=== PATIENT | female | born 1995 | race African-American/Black ===

== ENCOUNTER 2018-05-22 23:54 | Emergency (ER) | payer OTHER, SELFPAY ==
[2018-05-23] MEDS ORDERED: HYDROcodone/Acetaminophen 10/325 mg Tablet ONE (01:06)
== END 2018-05-23 01:15 | disposition home or self-care (01) ==
LOC: ERS 23:54
DX: K04.7 Periapical abscess without sinus (principal); F41.9 Anxiety disorder, unspecified
CPT/HCPCS: 99282

== ENCOUNTER 2018-05-24 00:01 | Emergency (ER) | payer SELFPAY ==
[2018-05-24 00:39] LABS: #Lymphocytes 1.2 thou/uL (1.20-3.40); #Neutrophils 7.7 thou/uL (1.40-6.50); %Basophils 0.1 % (0.0-1.0); %Eosinophils 0.1 % (0.0-10.0); %Lymphocytes 11.7 % (21.0-51.0); %Monocytes 10.4 % (0.0-10.0); %Neutrophils 77.7 % (42.0-75.0); Hemoglobin 13.4 g/dL (12.0-16.0); Mean Corpuscular HGB CONC 32.9 g/dL (32.0-36.0); Mean Corpuscular Hemoglobin 29.8 pg (27.0-31.0); Mean Corpuscular Volume 90.5 fL (78.0-98.0); Mean Platelet Volume 9.5 fL (7.4-10.4); Platelet Count 138 thou/uL (130-400); RBC Distribution Width 11.7 % (11.5-14.5); White Blood Cell (WBC) Count 9.9 thou/uL (4.8-10.8)
[2018-05-24] MEDS ORDERED: Ketorolac Tromethamine 30 MG/ML VIAL ONE (00:40)
[2018-05-24] MEDS ORDERED: Clindamycin/D5W 900 mg/50 ml Premix Bag ONE (00:40)
[2018-05-24 00:51] LABS: BHCG - Serum Negative (NEGATIVE); Pregs Control Background? CLEAR/WHITE (CLR/WHITE); Pregs Control Bar Appear? YES (CONTROL BAR)
[2018-05-24 01:01] LABS: ALT (SGPT) 12 U/L (8-55); AST (SGOT) 17 U/L (5-34); Albumin 4.2 g/dL (3.5-5.0); Alkaline Phosphatase 76 U/L (40-150); Anion Gap 14 mmol/L (10-20); BUN (Urea Nitrogen) 9 mg/dL (7.0-18.7); Bilirubin, Total 0.7 mg/dL (0.2-1.2); Calc. Creatinine Clearance 0 mL/min (70-130); Calcium 9.7 mg/dL (7.8-10.44); Carbon Dioxide 25 mmol/L (22-29); Chloride 100 mmol/L (98-107); Estimated GFR-MDRD Greater than 90; Globulin 4.1 g/dL (2.4-3.5); Glucose 86 mg/dL (70-105); Potassium 3.5 mmol/L (3.5-5.1); Protein, Total 8.3 g/dL (6.0-8.3); Sodium 135 mmol/L (136-145)
[2018-05-24] MEDS ORDERED: Dexamethasone 10 MG/ML VIAL ONE (02:10)
--- NOTE | 2018-05-24 08:05 | RAD ---
SINGLE VIEW OF THE CHEST: DATE: 07/12/16. HISTORY: Syncope and weakness for the past 2 days. FINDINGS: Single view of the chest shows a normal sized cardiomediastinal silhouette. There is no evidence of c onsolidation, mass, or pleural effusion. The bones are unremarkable. IMPRESSION: No evidence of acute cardiopulmonary disease. POS: [facility]
--- NOTE | 2018-05-24 09:16 | CT ---
PRELIMINARY REPORT/[facility]/EMERGENTY AFTER-HOURS PROCEDURE CT Maxillofacial With Intravenous Contrast CLINICAL HISTORY: 22 years old, female; Signs and symptoms; Mass, lump, or swelling; Maxilla; Patient HX: Additional hi story obtained from em[facility], f24 reports near syncope episode, and was caught by co-workers. Pt reports b eing very weak the past x2 days. Pt reports l. Sided tooth pain. Pt came up here last night and was given an RX for bactrim and tramadol, with little pain relief. Febrile at 102.7, 1000mg of ty lenol po was given via [facility]. Pt reports taking x2 total doses of bactrim. TECHNIQUE: Axial computed tomography images of the face with intravenous contrast. Coronal and sagittal reformatted images were created and reviewed. COMPARISON: No relevant prior studies available. FINDINGS: Bones/joints: No acute fracture. Soft tissues: Asymmetric enlargement and edema of the left masseter and pterygoid muscles with diffus e surrounding inflammatory changes and left facial soft tissue swelling. Inflammatory changes of the left parapharyngeal space, glossotonsillar sulcus and left lateral pharyngeal wall are also present. Lymph nodes: Left greater than right bilateral cervical adenopathy, likely reactive. Orbits: Unremarkable. Sinuses: Unremarkable. Dental: Multiple dental restorations and the resulting significant metallic streak and beam hardening artifacts limits evaluation of the adjacent soft tissues of the oral cavity, bmw service technician space and fa cial soft tissues. Oral cavity: Tongue piercing present. Other findings: Left facial piercing. IMPRESSION: Asymmetric enlargement and edema of the left masseter and pterygoid muscles with diffuse surrounding inflammatory changes and left facial soft tissue swelling favoring to represent infection. Etiology p robably odontogenic disease however evaluation of the surrounding dental structures are very limited due to significant metallic dental streak and beam hardening artifacts. Recommend Dental consult. Thank you for allowing us to participate in the care of your patient. Dictated and Authenticated by: Esequiel Pedersen MD 05/24/2018 2:54 AM Central Time ([place] & [place]) FINAL REPORT EMERGENT AFTER HOURS CT OF THE FACE WITH CONTRAST: FINDINGS/IMPRESSION: I agree with the findings and impression given in the preliminary report per [facility] physician. There is soft tissue swelling in the left face and abnormal enlargement of the left muscles of mastication compared to the right. No well-defined fluid collection is identified, but evaluation is limited sec ondary to significant streak artifact from the dental amalgam. POS: [facility]
[2018-05-24] MEDS ORDERED: ISOVUE-370 76%-LOCM 1 ML ONE (12:11)
== END 2018-05-24 03:20 | disposition home or self-care (01) ==
LOC: ERS 00:01
DX: R55 Syncope and collapse (principal); K04.7 Periapical abscess without sinus; F41.9 Anxiety disorder, unspecified
CPT/HCPCS: 36415; 70487; 71045; 80053; 84703; 85025; 87040; 96361; 96365; 96375; J1100; J1885; J2270; J3490

== ENCOUNTER 2018-05-26 15:16 | Inpatient (IN) | payer SELFPAY ==
[~2018-05-26 15:16] MED LIST: ISOVUE-370 76%-LOCM 1 ML ONE
[2018-05-26 15:53] LABS: #Lymphocytes 2.9 thou/uL (1.20-3.40); #Monocytes 1.5 thou/uL (0.11-0.59); #Neutrophils 7.4 thou/uL (1.40-6.50); %Eosinophils 0.2 % (0.0-10.0); %Lymphocytes 24.6 % (21.0-51.0); %Monocytes 12.8 % (0.0-10.0); %Neutrophils 62.4 % (42.0-75.0); Hemoglobin 13.1 g/dL (12.0-16.0); Mean Corpuscular HGB CONC 33.6 g/dL (32.0-36.0); Mean Corpuscular Volume 89.3 fL (78.0-98.0); Mean Platelet Volume 8.9 fL (7.4-10.4); Platelet Count 157 thou/uL (130-400); RBC Distribution Width 11.5 % (11.5-14.5); Red Blood Cell (RBC) Count 4.36 mill/uL (4.20-5.40); White Blood Cell (WBC) Count 11.8 thou/uL (4.8-10.8)
[2018-05-26 16:11] LABS: BHCG - Serum Negative (NEGATIVE); Pregs Control Background? CLEAR/WHITE (CLR/WHITE); Pregs Control Bar Appear? YES (CONTROL BAR)
[2018-05-26] MEDS ORDERED: Clindamycin/D5W 900 mg/50 ml Premix Bag ONE (17:00)
--- NOTE | 2018-05-26 17:55 | CT ---
CT NECK SOFT TISSUES WITH CONTRAST: 05/26/2018 5:06 p.m. HISTORY: A 22-year-old female with left facial soft tissue swelling, here for preoperative evaluation. COMPARISON: Maxillofacial CT with contrast from 05/24/2018. FINDINGS: The previously described soft tissue edema and swelling of the superficial and deep spaces of the lef t face are no better than on 05/24/2018 and are probably slightly worse. This involves the left mast icator, parapharyngeal, submandibular, and buccal spaces. There is extensive reactive infectious lym phadenopathy in levels 1A, especially 1B, 2, 3, 4, and 5, bilaterally, left greater than right. Ther e is involvement of the larynx and hypopharynx, including complete effacement of the left piriform si nus and infiltration of the left paraglottic fat. There is a large amount of edema along the platysm a muscle superficial to the submandibular space, and a moderate amount of edema superficial to it. A s previously described, metallic dental work causes streak artifact, obscuring portions of the oral c avity. No abscess identified. No involvement of the retropharyngeal space. In the left lobe of the thyroid gland, a 2.5 x 2 x 3.5 cm mass with heterogeneously intermediate and low attenuation. IMPRESSION: 1. Severe cellulitis involving the superficial and deep soft tissues of the left face, neck, larynx, and hypopharynx. 2. Associated reactive cervical lymphadenopathy. 3. No abscess identified. 4. Solitary 3.5 cm left thyroid nodule. Recommend further evaluation with thyroid ultrasound, on an elective, nonemergent basis. POS: [facility]
[2018-05-26] MEDS ORDERED: HYDROmorphone 0.5 MG/0.5 ML SYRINGE ONE (19:13)
[2018-05-26] MEDS ORDERED: Midazolam HCl 2 mg/2 ml Vial ONE (19:13)
[2018-05-26] MEDS ORDERED: Fentanyl 100 MCG/2 ML VIAL ONE ×2 (19:13)
[2018-05-26] MEDS ORDERED: Lidocaine 1% w/Epinephrine 1:100K 30 ML VIAL ONE (19:39)
[2018-05-26] MEDS ORDERED: Chlorhexidine Gluconate 15 ML UDCUP SSP ONE (19:39)
[2018-05-26] MEDS ORDERED: Bacitracin Zinc Ointment 30 gm TUBE ONE (19:39)
[2018-05-26] MEDS ORDERED: Oxymetazoline HCl 0.05% ( 15 ML ) ONE (19:54)
[2018-05-26] MEDS ORDERED: Succinylcholine Chloride 20 MG/ML 10 ml SYRINGE FS ONE (20:14)
[2018-05-26] MEDS ORDERED: SUGAMMADEX SODIUM 200 MG/2 ML VIAL ONE (20:32)
[2018-05-26] MEDS ORDERED: Promethazine HCl 25 MG/ML VIAL SLOW IVP PRN (21:33)
[2018-05-26] MEDS ORDERED: Promethazine HCl 25 MG/ML VIAL IM PRN (21:33)
[2018-05-26] MEDS ORDERED: HYDROmorphone 2 MG/ML VIAL SLOW IVP PRN (21:33)
[2018-05-26] MEDS ORDERED: Meperidine HCl/PF 25 MG/ML VIAL SLOW IVP PRN (21:33)
[2018-05-26] MEDS ORDERED: Ondansetron HCl/PF 4 MG/2 ML Vial IVP PRN ×2 (21:33→21:46)
[2018-05-26] MEDS ORDERED: HYDROcodone/Acetaminophen 7.5/325 mg Tablet PO PRN (21:45)
[2018-05-26] MEDS ORDERED: Morphine 4 MG/ML VIAL SLOW IVP PRN (21:48)
[2018-05-26] MEDS: Dextrose 5 %-0.45 % NaCl 1,000 ML IV SCH (22:45)
[2018-05-27] MEDS: Ibuprofen 800 MG TAB PO SCH ×4 (00:03→17:29)
[2018-05-27 00:59] VITALS: BMI 32.9
[2018-05-27] MEDS: Dextrose 5 %-0.45 % NaCl 1,000 ML IV SCH ×3 (01:53→17:38)
--- NOTE | 2018-05-27 01:54 | OP ---
DATE OF OPERATION: 05/26/2018 PREOPERATIVE DIAGNOSES: 1. Left submandibular abscess. 2. Left mandibular buccal abscess. 3. Dental decay and abscess of tooth #17. POSTOPERATIVE DIAGNOSES: 1. Left submandibular abscess. 2. Left mandibular buccal abscess. 3. Dental decay and abscess of tooth #17. PROCEDURES PERFORMED: 1. Incision and drainage of left submandibular buccal space abscesses. 2. Surgical extraction of tooth #17. NEUROPHYSIOLOGIST: Dr. Garcia. INDICATIONS FOR PROCEDURE: This is a 22-year-old female with a 4-day history of progressive left fac e and neck swelling with associated tooth pain. She presented to the clinic with severe trismus, lef t buccal and submandibular edema, and tenderness to palpation. The patient was sent to the emergency room where a CT of the neck revealed an odontogenic-related abscess from tooth #17 involving the lef t buccal and left submandibular spaces, requiring operative intervention. PROCEDURE PERFORMED: The patient was met in the preoperative holding area. Risks, benefits, and alt ernatives of the procedure were discussed in detail with the patient and the patient's mother. Quest ions were sought and answered, informed consent was obtained. The patient was transferred to the OR and to the table where a safety belt was secured, standard ASA monitor attached, and the patient was noted to have stable vital signs. IV induction by Anesthesia with nasoendotracheal intubation x1 wit hout complication. The patient was prepped and draped in a sterile fashion and a timeout was perform ed. We began by thoroughly suctioning the oropharynx and moistened Ray-Reena throat pack was placed. Peridex mouth rinse was used with a toothbrush and 1% Marcaine with 1:200,000 epinephrine was adminis tered as a local infiltration in the left mandibular vestibule as well as a left inferior alveolar ne rve and lingual nerve blocks. Purulence on palpation was noted from the sulcus of tooth #17 and 18, which was cultured. A full thickness mucoperiosteal envelope flap was reflected with fluid dissectio n of the periosteum on the buccal cortex of the mandible extending all the way to the inferior border . A 703 kurt was used for buccal ostectomy and elevator extraction was performed of tooth #17. Sock et was curetted. Then, blunt dissection was carried down to the inferior border posteriorly and ante riorly along the inferior border of the mandible. There was no significant fluid collection beyond o n the inferior border of the mandible. Copious irrigation of the wound was performed with normal gale ine. The full thickness mucoperiosteal envelope flap was closed with 4-0 chromic. Then, a 15 blade was used to make a 1 cm horizontal incision in the depth of the vestibule in the left posterior clint bular vestibule and a half-inch Lilibeth drain was placed and secured with a 3-0 silk suture. The thr oat pack was removed. The oropharynx was thoroughly suctioned. Gauze pack was placed for hemostasis at the extraction site and this concluded the procedure. The patient was extubated in the room and returned to the PACU in stable condition. FLUIDS: See anesthesia records. ESTIMATED BLOOD LOSS: 30 mL. DRAINS: A half-inch Lilibeth drain to the left mandibular vestibule. SPECIMENS: Cultures taken. IMPLANTS: None. COMPLICATIONS: None. COUNTS: Needle and sponge count verified as correct.
[2018-05-27] MEDS: Clindamycin/D5W 900 MG in Premix Bag 1 BAG IVPB SCH ×2 (05:04→12:00)
[2018-05-27] MEDS ORDERED: Chlorhexidine Gluconate 15 ML UDCUP SSP SCH (09:00)
[2018-05-27 19:41] VITALS: BP 97/56; TEMP 97.5
== END 2018-05-27 19:50 | disposition home or self-care (01) | DRG 159 ==
LOC: SDC 15:16 → SURG B 20:03
PROVIDERS: ADMIT Dentist Oral and Maxillofacial Surgery; ATTEND Dentist Oral and Maxillofacial Surgery
PROC: 0C9 Mouth and Throat, Drainage (ICD-10-PCS; principal; 2018-05-26)
PROC: 0CDXXZ0 Extraction of Lower Tooth, Single, External Approach (ICD-10-PCS; 2018-05-26)
DX: K12.2 Cellulitis and abscess of mouth (principal); K02.9 Dental caries, unspecified; K04.7 Periapical abscess without sinus
CPT/HCPCS: 36415; 70491; 84703; 85025; 87070; 87205; J1170; J2001; J2250; J3010; J3490

== ENCOUNTER 2018-08-21 18:09 | Emergency (ER) | payer SELFPAY | END 2018-08-21 18:44 | disposition left against medical advice (07) | LOC: ERS 18:09 | DX: Z53.21 Procedure and treatment not carried out due to patient leaving prior to being seen by health care provider (principal) ==

== ENCOUNTER 2018-08-21 18:33 | Emergency (ER) | payer SELFPAY ==
[2018-08-21] MEDS ORDERED: Metoclopramide HCl 10 MG/2 ML VIAL ONE (19:25)
[2018-08-21] MEDS ORDERED: diphenhydrAMINE 50 MG/ML VIAL ONE (19:25)
[2018-08-21] MEDS ORDERED: Acetaminophen 500 MG TAB ONE (19:44)
== END 2018-08-21 20:08 | disposition home or self-care (01) ==
LOC: SCSER 18:33
DX: E86.0 Dehydration (principal); F41.9 Anxiety disorder, unspecified
CPT/HCPCS: 99283; J1200; J2765

== ENCOUNTER 2018-12-22 21:28 | Emergency (ER) | payer SELFPAY ==
[2018-12-22] MEDS ORDERED: diphenhydrAMINE 50 MG/ML VIAL ONE (22:05)
[2018-12-22] MEDS ORDERED: methylPREDNISolone Sod Succ/PF 125 MG/2 ML VIAL ONE (22:05)
[2018-12-22] MEDS ORDERED: Ketorolac Tromethamine 30 MG/ML VIAL ONE (22:05)
[2018-12-22] MEDS ORDERED: Metoclopramide HCl 10 MG/2 ML VIAL ONE (22:05)
== END 2018-12-22 23:41 | disposition home or self-care (01) ==
LOC: SCSER 21:28
DX: G43.909 Migraine, unspecified, not intractable, without status migrainosus (principal); F41.9 Anxiety disorder, unspecified
CPT/HCPCS: 96365; 96375; J1200; J1885; J2765; J2930

== ENCOUNTER 2019-06-25 21:56 | Emergency (ER) | payer BC, SELFPAY | END 2019-06-25 23:27 | disposition home or self-care (01) | LOC: SCSER 21:56 | DX: G89.18 Other acute postprocedural pain (principal); M25.561 Pain in right knee; F41.9 Anxiety disorder, unspecified; Z79.899 Other long term (current) drug therapy | CPT/HCPCS: 99283 ==

== ENCOUNTER 2020-04-11 21:46 | Emergency (ER) | payer BC | END 2020-04-11 23:56 | disposition left against medical advice (07) | LOC: ERS 21:46 | DX: Z53.21 Procedure and treatment not carried out due to patient leaving prior to being seen by health care provider (principal) ==